=== PATIENT | female | born 1955 | race Caucasian/White ===

== ENCOUNTER → 2016-09-12 | Outpatient (CLI) | payer BC ==
[2015-08-13 11:17] VITALS: BP 125/72
--- NOTE | 2016-09-12 09:18 | US ---
HISTORY: Right upper quadrant pain Study: Right upper quadrant abdominal ultrasound Comparison: None Technique: Multiple images of the right upper quadrant were obtained. Findings: Portions of the liver are obscured by shadowing from overlying ribs. Increased echogenicity througho ut the liver suggests infiltration. The right kidney measures 9.0 x 6.8 x 4.7 cm. No sonographic marlene dence of hydronephrosis is identified. No shadowing echogenic stones are noted within the gallbladde r. Gallbladder wall thickness is within normal limits measuring 2.8 mm. The single needle operator noted a posi tive Navas's sign. The common bile duct is within normal limits in caliber measuring 6.0 mm. The pa ncreas was not visualized. IMPRESSION: 1. Sonographic findings of hepatic steatosis. Reported By:
== END ==
LOC: RAD 08:47
PROVIDERS: ATTEND Internal Medicine Gastroenterology
DX: R10.11 Right upper quadrant pain (principal)
CPT/HCPCS: 76705

== ENCOUNTER → 2016-10-07 | Outpatient (CLI) | payer BC ==
[2015-08-13 11:17] VITALS: BP 125/72
--- NOTE | 2016-10-07 14:37 | NM ---
HISTORY: RUQ pain, nausea. Technique: Multiple scintigraphic images of the abdomen were obtained the intravenous administration of 3.4 mCi of technetium labeled Choletec. Following distention of the gallbladder with radiotracer a bottle of Ensure was given. An estimated gallbladder ejection fraction was calculated based on this physiologic response. Findings: Homogeneous uptake of radiotracer is seen throughout the liver. The intrabiliary ductal system is o bserved normally. The common hepatic and common bile duct grossly appear unremarkable with normal b iliary-bowel transit. The gallbladder is observed to fill normally without evidence for acute ricco cystitis. After the administration of ensure, however, an abnormally low gallbladder ejection fracti on of 15% (normal > 35%) is observed. Although many etiologies (certain medications, cholangitis, pa ncreatitis, sepsis, etc.) can account for a low gallbladder ejection fraction, in the outpatient set ting, the most common etiology is chronic cholecystitis. IMPRESSION: 1. Hepatobiliary imaging study demonstrates no evidence for hepatic dysfunction, acute cholecystiti s, or biliary leak/biloma formation. 2. Low gallbladder ejection fraction of 15%, most likely reflecting chronic cholecystitis, as discu ssed above. Reported By:
== END ==
LOC: RAD 09:57
PROVIDERS: ATTEND Nurse Practitioner Family
DX: R10.11 Right upper quadrant pain (principal); R10.31 Right lower quadrant pain; R11.0 Nausea; K21.9 Gastro-esophageal reflux disease without esophagitis
CPT/HCPCS: 78227

== ENCOUNTER 2016-10-26 07:21 | Day surgery (SDC) | payer BC ==
[2016-10-26] MEDS ORDERED: XYLOCAINE-MPF 1% ONE (07:33)
[2016-10-26] MEDS ORDERED: MARCAINE 0.25% WITH EPI IJ ONE (07:33)
[2016-10-26] MEDS ORDERED: LR 1000 ML IV 1,000 ML IV ONE ×2 (07:36→09:03)
[2016-10-26] MEDS ORDERED: NS 50 ML IV + SPIKE MINIBAG* 50 ML IV ONE ×2 (07:36→08:22)
[2016-10-26] MEDS ORDERED: ANCEF VIAL 1 GM ONE ×2 (07:37→08:22)
[2016-10-26] MEDS ORDERED: FENTANYL INJ 250 mcg ONE (08:20)
[2016-10-26] MEDS ORDERED: NS IRRIGATION 1000 ML 1,000 ML IR ONE (08:30)
[2016-10-26] MEDS ORDERED: FENTANYL INJ 100 mcg ONE (09:03)
[2016-10-26] MEDS ORDERED: BENADRYL INJ 50 MG VIAL IVP PRN (09:57)
[2016-10-26] MEDS ORDERED: PHENERGAN INJ 25 MG IVP PRN (09:57)
[2016-10-26] MEDS ORDERED: ZOFRAN INJ 4 MG VIAL IVP PRN (09:57)
[2016-10-26] MEDS ORDERED: REGLAN INJ 10 MG VIAL IVP PRN (09:57)
[2016-10-26] MEDS ORDERED: DILAUDID INJ IVP PRN (09:57)
[2016-10-26] MEDS ORDERED: PERCOCET TAB 5/325 MG ONE (10:39)
[2016-10-26 11:38] VITALS: BP 128/67
[2016-10-26] MEDS ORDERED: NORCURON INJ 10 MG VIAL ONE (15:46)
[2016-10-26] MEDS ORDERED: NEOSTIGMINE INJ ONE (15:46)
[2016-10-26] MEDS ORDERED: REGLAN INJ 10 MG VIAL ONE (15:46)
[2016-10-26] MEDS ORDERED: DIPRIVAN VIAL ONE (15:46)
[2016-10-26] MEDS ORDERED: DYLOJECT INJ ONE (15:46)
[2016-10-26] MEDS ORDERED: XYLOCAINE 2 % (PLAIN) ONE (15:46)
[2016-10-26] MEDS ORDERED: QUELICIN (OR ANECTINE) ONE (15:46)
[2016-10-26] MEDS ORDERED: ROBINUL ONE (15:46)
[2016-10-26] MEDS ORDERED: VERSED ONE (15:46)
[2016-10-26] MEDS ORDERED: SUPRANE IN ONE (15:46)
[2016-10-26] MEDS ORDERED: LTA KIT LIDOCAINE 4% ONE (15:46)
[2016-10-26] MEDS ORDERED: ZOFRAN INJ 4 MG VIAL ONE (15:46)
== END 2016-10-26 11:41 | disposition home or self-care (01) ==
LOC: SURG1 07:21
PROVIDERS: ATTEND Student in an Organized Health Care Education/Training Program
PROC: 0FT44ZZ Resection of Gallbladder, Percutaneous Endoscopic Approach (ICD-10-PCS; principal; 2016-10-26 07:30)
DX: K81.1 Chronic cholecystitis (principal)
CPT/HCPCS: A4216; A4222; S0020; J0330; J0690; J2001; J2250; J2405; J2710; J2765; J3010; J3490; J7120

== ENCOUNTER → 2016-11-25 | Outpatient (CLI) | payer BC ==
[2016-10-26 11:38] VITALS: BP 128/67
--- NOTE | 2016-11-25 13:09 | US ---
HISTORY: Left neck mass. Study: Targeted ultrasound of the left neck. Comparison: None. Findings: A normal appearing lymph node is seen within the left neck at the patient's area of concern. Remaini ng soft tissues are unremarkable. IMPRESSION: Unremarkable exam. Reported By:
== END ==
LOC: RAD 10:49
PROVIDERS: ATTEND Nurse Practitioner Family
DX: R22.2 Localized swelling, mass and lump, trunk (principal)
CPT/HCPCS: 76705